=== PATIENT | male | born 2000 ===

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

== ENCOUNTER 2019-06-02 22:22 | Emergency (ER) | payer MEDICAID ==
[~2019-06-02] VITALS: Ht 182.9 cm; Wt 71.9 kg
[2019-06-02 22:25] VITALS: BP 116/69
[2019-06-02] MEDS ORDERED: IBUPROFEN 200 MG TABLET PO ONE (23:00)
[2019-06-02] MEDS ORDERED: IBUPROFEN 600 MG TABLET ONE (23:20)
[2019-06-02] MEDS ORDERED: DEXAMETHASONE 4 MG TABLET PO ONE (23:30)
[2019-06-02] MEDS ORDERED: DEXAMETHASONE 4 MG TABLET ONE (23:37)
== END 2019-06-02 23:41 | disposition home or self-care (01) ==
LOC: ED 23:24
DX: J02.8 Acute pharyngitis due to other specified organisms (principal); B97.89 Other viral agents as the cause of diseases classified elsewhere; J45.909 Unspecified asthma, uncomplicated; F17.210 Nicotine dependence, cigarettes, uncomplicated
CPT/HCPCS: 87081; 87880; 99283; 99406

== ENCOUNTER 2020-10-01 13:11 | Emergency (ER) | payer SELFPAY ==
[~2020-10-01] VITALS: Ht 182.9 cm; Wt 67.0 kg
[2020-10-01] MEDS ORDERED: ONDANSETRON ODT 4 MG ONE (13:52)
[2020-10-01] MEDS ORDERED: ONDANSETRON ODT 8 MG ONE (13:54)
--- NOTE | 2020-10-01 13:56 | NUR ---
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
[2020-10-01] MEDS ORDERED: ONDANSETRON ODT 8 MG PO ONE (14:00)
--- NOTE | 2020-10-01 14:40 | NUR ---
INITIAL PT CONTACT. PT PRESENTS TO ED C/O ABD PAIN AND NAUSEA. PT STATES "I USED TO DRINK A LOT AND STOPPED AND THEN I WENT AND PARTIED LAST NIGHT AND DRANK A LOT, I DONT EVEN KNOW HOW MUCH REALLY". PT STATES ZOFRAN GIVEN EARLIER IN TRIAGE HELPED NAUSEA "A LITTLE" BUT STILL PRESENT. PT SITTING UPRIGHT ON GURNEY WITH S.O. AT BEDSIDE. PT PROVIDED WARM BLANKET, CALL LIGHT AND PERSONAL BELONGINGS WITHIN REACH. PT DENIES ANY ADDITIONAL NEEDS AT THIS TIME. WILL CONTINUE TO MONITOR.
[2020-10-01 14:51] LABS: BASOPHILS % (AUTO) 1 % (0-1); EOSINOPHILS % (AUTO) 0 % (1-7); LYMPHOCYTES % (AUTO) 19 % (22-44); MEAN CORPUSCULAR HGB CONC 33.4 g/dL (33.2-36.2); MEAN PLATELET VOLUME 8.9 fL (7.4-10.4); MONOCYTES % (AUTO) 13 % (2-9); NEUTROPHILS % (AUTO) 67 % (42-75); PLATELET COUNT 328 x10^3/uL (130-400); RED CELL DISTRIBUTION WIDTH 12.8 % (9.4-14.8)
[2020-10-01 14:54] LABS: ANION GAP 7 mmol/L (5-15); CALCIUM 9.4 mg/dL (8.5-10.1); CHLORIDE 107 mmol/L (98-107)
[2020-10-01 14:58] LABS: ALANINE AMINOTRANSFERASE 38 U/L (12-78); ALKALINE PHOSPHATASE 76 U/L (45-117); BILIRUBIN,TOTAL 1.6 mg/dL (0.2-1.0); CREATININE 0.59 mg/dL (0.7-1.3); MD NO; TOTAL PROTEIN 7.4 g/dL (6.4-8.2)
[2020-10-01] MEDS ORDERED: SODIUM CHLORIDE 0.9% 1,000ML IVBOLUS ONE (15:30)
--- NOTE | 2020-10-01 15:45 | NUR ---
PT GIVEN GLASS OF WATER AND TOLERATED FLUIDS WELL. PT STATES HE "FEELS MUCH BETTER AND I REALLY WANNA GO HOME NOW". AWARE, AWAITING D/C.
--- NOTE | 2020-10-01 15:57 | NUR ---
Patient given discharge instructions and they have confirmed that they understand the instructions. Patient ambulatory with steady gait.
[2020-10-01 15:58] VITALS: BP 122/63
== END 2020-10-01 16:06 | disposition home or self-care (01) ==
LOC: ED 16:00
DX: K29.20 Alcoholic gastritis without bleeding (principal); R11.2 Nausea with vomiting, unspecified; R10.84 Generalized abdominal pain; J45.909 Unspecified asthma, uncomplicated; G43.909 Migraine, unspecified, not intractable, without status migrainosus; F17.200 Nicotine dependence, unspecified, uncomplicated
CPT/HCPCS: 36415; 80053; 85025; 96360; 99283; J7030; Q0162